=== PATIENT | male | born 1945 | race Caucasian/White ===

== ENCOUNTER 2016-11-16 09:49 | Emergency (ER) | payer BC, MEDICARE ==
[2016-11-16 10:17] LABS: #Basophils 0.1 thou/uL (0.0-0.2); #Eosinphils 0.1 thou/uL (0.0-0.7); #Lymphocytes 1.6 thou/uL (1.20-3.40); #Monocytes 0.8 thou/uL (0.11-0.59); #Neutrophils 6.5 thou/uL (1.40-6.50); %Basophils 0.6 % (0.0-1.0); %Eosinophils 0.7 % (0.0-10.0); %Lymphocytes 17.2 % (21.0-51.0); %Monocytes 9.2 % (0.0-10.0); Hematocrit 49.5 % (42.0-52.0); Mean Platelet Volume 7.5 fL (7.4-10.4); Red Blood Cell (RBC) Count 5.23 mill/uL (4.70-6.10)
[2016-11-16 10:43] LABS: Troponin I Less than 0.010 ng/mL (< 0.028)
[2016-11-16 10:45] LABS: ALT (SGPT) 14 U/L (8-55); AST (SGOT) 15 U/L (5-34); Alkaline Phosphatase 41 U/L (40-150); Anion Gap 15 mmol/L (10-20); BUN (Urea Nitrogen) 22 mg/dL (8.4-25.7); Bilirubin, Total 0.7 mg/dL (0.2-1.2); Calc. Creatinine Clearance 0 mL/min (70-130); Calcium 9.8 mg/dL (7.8-10.44); Carbon Dioxide 20 mmol/L (23-31); Chloride 106 mmol/L (98-107); Estimated GFR-MDRD 53; Globulin 3.8 g/dL (2.4-3.5)
[2016-11-16 10:51] LABS: Uric Acid 7.7 mg/dL (3.5-7.2)
[2016-11-16 10:52] LABS: Lactic Acid - Sepsis 1.3 mmol/L (0.5-2.2)
[2016-11-16] MEDS ORDERED: Colchicine 0.6 MG TAB PO SCH (12:45)
[2016-11-16] MEDS ORDERED: Indomethacin 25 mg Capsule PO SCH (12:45)
== END 2016-11-16 13:13 | disposition home or self-care (01) ==
LOC: ERS 09:49
DX: M10.9 Gout, unspecified (principal)
CPT/HCPCS: 36415; 80053; 82553; 83605; 84484; 84550; 85025; 85652; 86140; 93005

== ENCOUNTER 2018-07-04 10:40 | Observation (INO) | payer BC, MEDICARE ==
[2018-07-04 11:21] LABS: #Basophils 0.1 thou/uL (0.0-0.2); #Eosinphils 0.3 thou/uL (0.0-0.7); #Lymphocytes 2.2 thou/uL (1.20-3.40); #Monocytes 0.6 thou/uL (0.11-0.59); #Neutrophils 3.6 thou/uL (1.40-6.50); %Basophils 0.8 % (0.0-1.0); %Eosinophils 4.4 % (0.0-10.0); %Lymphocytes 32.2 % (21.0-51.0); %Monocytes 8.9 % (0.0-10.0); %Neutrophils 53.7 % (42.0-75.0); Hemoglobin 15.4 g/dL (14.0-18.0); Mean Corpuscular HGB CONC 34.6 g/dL (32.0-36.0); Mean Corpuscular Hemoglobin 31.3 pg (27.0-31.0); Mean Corpuscular Volume 90.4 fL (78.0-98.0); Mean Platelet Volume 7.8 fL (7.4-10.4); Platelet Count 219 thou/uL (130-400); RBC Distribution Width 12.6 % (11.5-14.5); Red Blood Cell (RBC) Count 4.92 mill/uL (4.70-6.10); White Blood Cell (WBC) Count 6.8 thou/uL (4.8-10.8)
[2018-07-04 11:28] LABS: ALT (SGPT) 19 U/L (8-55); AST (SGOT) 18 U/L (5-34); Albumin 4.2 g/dL (3.4-4.8); Alkaline Phosphatase 58 U/L (40-150); Anion Gap 11 mmol/L (10-20); BUN (Urea Nitrogen) 22 mg/dL (8.4-25.7); Bilirubin, Total 0.4 mg/dL (0.2-1.2); Calc. Creatinine Clearance 0 mL/min (70-130); Calcium 9.2 mg/dL (7.8-10.44); Carbon Dioxide 22 mmol/L (23-31); Chloride 111 mmol/L (98-107); Estimated GFR-MDRD 55; Globulin 2.7 g/dL (2.4-3.5); Glucose 99 mg/dL (83-110); Potassium 4.1 mmol/L (3.5-5.1); Protein, Total 6.9 g/dL (5.8-8.1); Sodium 140 mmol/L (136-145)
--- NOTE | 2018-07-04 11:47 | RAD ---
SINGLE VIEW OF THE CHEST: COMPARISON: None. HISTORY: Dizziness and chest pain FINDINGS: Single view of the chest shows a normal sized cardiomediastinal silhouette. There is no evidence of c onsolidation, mass, or pleural effusion. The bones are unremarkable. IMPRESSION: No evidence of acute cardiopulmonary disease. POS: [facility]
[2018-07-04] MEDS ORDERED: Ondansetron PF 4 MG/2 ML Vial IVP PRN (14:25)
[2018-07-04] MEDS ORDERED: Acetaminophen 500 MG TAB PO PRN (14:25)
[2018-07-04] MEDS ORDERED: hydrALAZINE 20 MG/ML VIAL SLOW IVP PRN (14:25)
[2018-07-04] MEDS ORDERED: Ondansetron ODT 4 MG TAB PO PRN (14:25)
[2018-07-04 14:53] LABS: Troponin I Less than 0.010 ng/mL (< 0.028)
[2018-07-04 15:26] VITALS: BMI 31.8
[2018-07-04 17:25] LABS: Troponin I 0.014 ng/mL (< 0.028)
[2018-07-04] MEDS: Sodium Chloride 0.9% 1,000 ML IV SCH (17:35)
--- NOTE | 2018-07-04 20:04 | HP ---
PRIMARY CARE PROVIDER: Dr. Everett Reynoso. CHIEF COMPLAINT: Chest pain. HISTORY OF PRESENT ILLNESS: This is a 73-year-old male, who presents to [facility] complaining of several week history of left-sided chest pressure, tightness, and pain. The patient has noted intermittent bouts of chest pressure and pain related to strenuous activity including mowing his lawn. The patient states he remains active doing maintenance surrounded his house as well as lawn care with persistent symptoms of left upper chest pain and pressure. The patient also has noted varying symptoms of dizziness, fatigue, and shortness of breath. The patient denies any known personal history of coronary artery disease and states he has undergone stress testing in the past within the last 2 years, which was negative. The patient denies any early coronary artery disease in family members. The patient denies taking chronic aspirin therapy, but had been treated previously in the past with Prilosec. The patient also admits history of gouty arthropathy intermittently taking colchicine for relief. The patient states he remains very active as stated previously without lower extremity swelling, fever, chills, cough, congestion, or exposure history. The patient denies any recent long periods of immobilization or recent surgical intervention. The patient states in the last 24 to 48 hours he took aspirin after experiencing chest tightness, which concerned him and discussing his symptoms with his family members who are in the medical field. The patient does admit to remote history of tobacco use 40+ years prior to this evaluation, none currently. In the emergency room, the patient underwent evaluation including metabolic screening with initial negative findings and troponin I. EKG was unremarkable and chest imaging negative. PAST MEDICAL HISTORY: 1. Gouty arthropathy. 2. Left AV malformation of the kidney, status post left nephrectomy. PAST SURGICAL HISTORY: 1. Status post hernia repair. 2. Status post left nephrectomy with lymph node resection and lower rib resection. CURRENT MEDICATIONS: 1. Colchicine. 2. Prilosec. ALLERGIES: TETRACYCLINE AND PENICILLIN. FAMILY HISTORY: One brother of complications of suspected coronary artery disease. No history of early coronary artery disease. SOCIAL HISTORY: The patient is , accompanied by his in the emergency room. No current tobacco or illicit drug use. Drinks wine occasionally. Employed at [employer] and [employer]. Functional of all activities of daily living. REVIEW OF SYSTEMS: CONSTITUTIONAL: Negative for weight loss or gain, ability to conduct usual activities. SKIN: Negative for rash, itching. EYES: Negative for double vision, pain. ENT/MOUTH: Negative for nose bleeding, neck stiffness, pain, tenderness. CARDIOVASCULAR: Negative for palpitations, dyspnea on exertion, orthopnea. RESPIRATORY: Negative for shortness of breath, wheezing, cough, hemoptysis, fever or night sweats. GASTROINTESTINAL: Negative for poor appetite, abdominal pain, heartburn, nausea, vomiting, constipation, or diarrhea. GENITOURINARY: Negative for urgency, frequency, dysuria, nocturia. MUSCULOSKELETAL: Negative for pain, swelling. NEUROLOGIC/PSYCHIATRIC: Negative for anxiety, depression. ALLERGY/IMMUNOLOGIC: Negative for skin rash, bleeding tendency. Otherwise negative except as stated per HPI. PHYSICAL EXAMINATION: VITAL SIGNS: On admission, blood pressure 150/92, pulse 69, respiratory rate 20, temperature 98.4 degrees Fahrenheit, and O2 saturation 98% on room air. GENERAL APPEARANCE: This is a 73-year-old male, alert and oriented x3, pleasant, conversant, in no acute distress. HEENT: Pupils are equal, round, reactive to light and accommodation. Extraocular muscles are intact. No scleral icterus. No conjunctival injection. Nares are patent. OP is clear. Teeth in good repair. NECK: Supple. No cervical adenopathy. No thyromegaly. No carotid bruits. No JVD appreciated. Cervical spine with full active and passive range of motion. No meningeal signs noted. CHEST: Lungs are clear to auscultation bilaterally. CARDIOVASCULAR: S1 and S2 without noted murmur, rub, or gallop. ABDOMEN: Rounded, soft, nontender, and nondistended. Bowel sounds are positive in all 4 quadrants. There is no hepatosplenomegaly. No abdominal bruits. No rebound or guarding appreciated. EXTREMITIES: Warm and dry with fair turgor. No clubbing, cyanosis, or asymmetric edema appreciated. Pulses palpable distally at the dorsalis pedis, posterior tibial, and popliteal arteries bilaterally. Capillary refill less than 2 seconds. MUSCULOSKELETAL: Positive tenderness to palpation in the left pectoral region and associated level in the posterior upper thoracic spine in mid scapular region. NEUROLOGIC: Cranial nerves 2 through 12 are grossly intact. No focal or lateralizing signs appreciated. PERTINENT LABORATORY DATA AND X-RAY FINDINGS: Complete metabolic profile within normal limits. Troponin I negative x1. CBC within normal limits. Portable chest x-ray dated 07/04/2018, showed no acute cardiopulmonary process. EKG dated 07/04/2018, by my interpretation shows sinus mechanism with heart rates in the 70s. Normal axis. No acute ST-T wave changes appreciated. ASSESSMENT AND PLAN: 1. Chest pain. The patient will be observed on the telemetry unit. We will proceed with exercise Cardiolite stress testing. N.p.o. status currently. Check fasting lipid profile in the a.m. Continue aspirin 325 mg daily. 2. Elevated blood pressure. No prior history of documented or treated hypertension. We will continue serial blood pressure monitoring and treat accordingly. Hydralazine p.r.n. systolic blood pressure greater than or equal to 170. 3. Gout. Stable currently. No clinical evidence of exacerbation. Confirm home regimen of colchicine. 4. Prophylaxis. SCDs while in bed. Pepcid 20 mg p.o. b.i.d. CODE STATUS: Full. Surrogate medical decision maker is the patient's spouse. Job ID: [id number]
[2018-07-04] MEDS: Famotidine 20 MG TAB PO SCH (20:48)
[2018-07-05 05:03] LABS: Anion Gap 12 mmol/L (10-20); BUN (Urea Nitrogen) 18 mg/dL (8.4-25.7); Calc. Creatinine Clearance 83 mL/min (70-130); Calcium 9.2 mg/dL (7.8-10.44); Carbon Dioxide 21 mmol/L (23-31); Cardiac Risk 5.4 (Less than 4.5); Chloride 111 mmol/L (98-107); Cholesterol 188 mg/dl (< 200 Desired); Estimated GFR-MDRD 63; Glucose 99 mg/dL (83-110); HDL Cholesterol 35 mg/dL (>60 Neg Risk); LDL Cholesterol, Calculated 106 mg/dL; Potassium 4.3 mmol/L (3.5-5.1); Sodium 140 mmol/L (136-145); Triglycerides 233 mg/dL (Less than 150)
[2018-07-05] MEDS: Sodium Chloride 0.9% 1,000 ML IV SCH (06:23)
[2018-07-05] MEDS ORDERED: Aspirin 325 mg Enteric Coated Tablet PO SCH (09:00)
--- NOTE | 2018-07-05 10:59 | NM ---
EXAM: CARDIAC SPECT HISTORY: Chest pain TECHNIQUE: A myocardial perfusion scan was performed using the single isotope 2 day protocol with giovanni hnetium 99m sestamibi. [27 mCi] was injected intravenously for the rest exam followed by 28 mCifor the stress study. Exercise stress was monitored and interpreted by Dr. Sheehan. FINDINGS: Homogeneous tracer distribution is seen in the myocardial segments on stress and rest image s without fixed or reversible defects. Gated SPECT LVEF: 70% Wall motion exam: Normal IMPRESSION: Normal myocardial perfusion scan
[2018-07-05] MEDS: Famotidine 20 MG TAB PO SCH (11:16)
[2018-07-05 11:43] VITALS: BP 150/78; TEMP 97.4
--- NOTE | 2018-07-06 06:44 | DIS ---
DATE OF ADMISSION: 07/04/2018 DATE OF DISCHARGE: 07/05/2018 DISCHARGE DIAGNOSES: 1. Chest pain, noncardiac, likely musculoskeletal. 2. Elevated blood pressure. 3. Hyperlipidemia. 4. Chronic kidney disease stage 2. CONSULTATIONS: None. PERTINENT LAB AND X-RAY FINDINGS: Creatinine ranged between 1.15 to 1.28 estimated GFR ranged between 55 to 63. Troponin I negative x3. Total cholesterol 188, triglycerides 233, HDL 35, LDL 106. Portable chest x-ray dated 07/04/2018 showed no acute cardiopulmonary process. Exercise Cardiolite stress test dated 07/04/2018 showed no evidence for reversible or fixed ischemia with calculated ejection fraction of 70%. HOSPITAL COURSE: The patient was observed on the telemetry unit after initially presenting with left-sided chest pain. The patient underwent cardiac biomarkers, which were negative x3 proceeding to exercise Cardiolite stress testing showing no evidence of reversible or fixed ischemia with a calculated ejection fraction of 70%. Telemetry monitoring showed sinus mechanism without evidence of acute arrhythmia or dysrhythmia. The patient was noted with elevated blood pressure readings throughout the hospital course with recommendations for outpatient monitoring and consideration of potential low-dose antihypertensive therapy. The patient also noted with mild hyperlipidemia with recommendations for dietary measures and exercise. Overall, the patient remained clinically stable throughout the hospital course. I have examined the patient at the time of discharge and discussed followup instructions. The patient verbalized understanding and agreement, ready for discharge on 07/05/2018. DISCHARGE MEDICATIONS: 1. Unisom mg p.o. at bedtime p.r.n. 2. Aleve 220 mg p.o. at bedtime p.r.n. pain. FOLLOWUP: The patient may follow up with his primary care provider, Dr. Everett Reynoso within 7 days of discharge. CONDITION ON DISCHARGE: Stable. ACTIVITY: Ad-sal. DIET: Heart healthy. CODE STATUS: Full. DISPOSITION: Home on 07/05/2018. Job ID: [id number]
== END 2018-07-05 13:31 | disposition home or self-care (01) ==
LOC: ERS 10:40 → 2SW 12:29
PROVIDERS: ADMIT Family Medicine; ATTEND Family Medicine
DX: R07.89 Other chest pain (principal); N18.2 Chronic kidney disease, stage 2 (mild); M10.9 Gout, unspecified; E78.5 Hyperlipidemia, unspecified; R03.0 Elevated blood-pressure reading, without diagnosis of hypertension; Z90.5 Acquired absence of kidney; Z88.0 Allergy status to penicillin; Z88.1 Allergy status to other antibiotic agents
CPT/HCPCS: 36415; 71045; 78452; 80048; 80053; 80061; 84484; 85025; 93005; 93017; 94760; 96360; 96361; A9500; G0378

== ENCOUNTER 2019-02-18 11:49 | Outpatient (CLI) | payer MEDICARE, BC ==
[2019-02-18 13:47] LABS: #Basophils 0.1 thou/uL (0.0-0.2); #Eosinphils 0.1 thou/uL (0.0-0.7); #Monocytes 0.4 thou/uL (0.11-0.59); #Neutrophils 4.2 thou/uL (1.40-6.50); %Basophils 1.3 % (0.0-1.0); %Eosinophils 1.8 % (0.0-10.0); %Lymphocytes 28.9 % (21.0-51.0); %Monocytes 5.5 % (0.0-10.0); %Neutrophils 62.4 % (42.0-75.0); Hemoglobin 15.9 g/dL (14.0-18.0); Mean Corpuscular HGB CONC 33.6 g/dL (32.0-36.0); Mean Corpuscular Hemoglobin 30.4 pg (27.0-31.0); Mean Corpuscular Volume 90.6 fL (78.0-98.0); Mean Platelet Volume 7.8 fL (7.4-10.4); Platelet Count 243 thou/uL (130-400); RBC Distribution Width 12.5 % (11.5-14.5); Red Blood Cell (RBC) Count 5.24 mill/uL (4.70-6.10); White Blood Cell (WBC) Count 6.7 thou/uL (4.8-10.8)
[2019-02-18 14:13] LABS: ALT (SGPT) 25 U/L (8-55); AST (SGOT) 21 U/L (5-34); Albumin 4.4 g/dL (3.4-4.8); Alkaline Phosphatase 55 U/L (40-110); Anion Gap 13 mmol/L (10-20); BUN (Urea Nitrogen) 22 mg/dL (8.4-25.7); Bilirubin, Total 0.4 mg/dL (0.2-1.2); Calc. Creatinine Clearance 0 mL/min (70-130); Calcium 9.4 mg/dL (7.8-10.44); Carbon Dioxide 29 mmol/L (23-31); Chloride 106 mmol/L (98-107); Estimated GFR-MDRD 42; Glucose 99 mg/dL (83-110); Potassium 4.4 mmol/L (3.5-5.1); Protein, Total 7.4 g/dL (5.8-8.1); Sodium 144 mmol/L (136-145)
--- NOTE | 2019-02-21 15:17 | EKG ---
Test Reason : Blood Pressure : / mmHG Vent. Rate : 103 BPM Atrial Rate : 103 BPM P-R Int : 156 ms QRS Dur : 086 ms QT Int : 344 ms P-R-T Axes : 015 049 033 degrees QTc Int : 450 ms Sinus tachycardia Otherwise normal ECG When compared with ECG of 04-JUL-2018 10:48, Previous ECG has undetermined rhythm, needs review QT has lengthened Confirmed by DR. Alexi SANTANA ([id number]) on 02/21/2019 3:16:37 PM Referred By: BABAR Confirmed By:DR. Alexi SANTANA
== END 2019-02-18 11:50 | disposition home or self-care (01) ==
LOC: LABBT 11:49
PROVIDERS: ATTEND Surgery
DX: Z01.818 Encounter for other preprocedural examination (principal); K40.91 Unilateral inguinal hernia, without obstruction or gangrene, recurrent
CPT/HCPCS: 80053; 85025; 93005; 93010

== ENCOUNTER 2019-02-21 05:32 | Day surgery (SDC) | payer MEDICARE, BC ==
[2019-02-18 13:01] VITALS: BMI 32.5
[2019-02-21] MEDS ORDERED: Levofloxacin 500 mg/D5W 100 ml Premix Bag ONE (06:11)
[2019-02-21] MEDS ORDERED: Midazolam HCl 2 mg/2 ml Vial ONE (06:22)
[2019-02-21] MEDS ORDERED: SUGAMMADEX SODIUM 200 MG/2 ML VIAL ONE (06:22)
[2019-02-21] MEDS ORDERED: Fentanyl 100 MCG/2 ML VIAL ONE ×2 (06:22→09:36)
[2019-02-21] MEDS ORDERED: HYDROmorphone 0.5 MG/0.5 ML SYRINGE ONE (06:23)
[2019-02-21] MEDS ORDERED: Bupivacaine 0.25% HCL 30 ML VIAL ONE (06:51)
[2019-02-21] MEDS ORDERED: Lidocaine 1% w/Epinephrine 1:100K 20 ML VIAL ONE (06:51)
--- NOTE | 2019-02-21 11:23 | OP ---
DATE OF PROCEDURE: 02/21/2019 PREOPERATIVE DIAGNOSIS: Recurrent left inguinal hernia. PROCEDURE PERFORMED: Laparoscopic robotic-assisted recurrent left inguinal hernia repair with mesh. INDICATIONS: This is a 73-year-old male who had a left inguinal hernia repair many years ago, developed recurrent bulge. FINDINGS: Recurrent direct inguinal hernia. DESCRIPTION OF PROCEDURE: After informed consent was obtained, the patient was taken to the operating room, given general endotracheal anesthesia, placed in supine position. Abdomen was prepped and draped in usual fashion. Local anesthesia was infiltrated subcutaneously and deep. A supraumbilical incision was performed. Subcu was divided sharply. The fascia was grasped and incised. Digital palpation revealed no local adhesions. A 12 mm trocar was inserted. Pneumoperitoneum was created to a pressure of 15 mmHg. A 30-degree laparoscope was inserted under direct vision. Two 8 mm ports were placed just lateral to the rectus bilateral. The patient was then placed in steep reverse Trendelenburg position. The robot was docked. I went to the console. The peritoneum was opened from the median umbilical ligament. First of all, there was a laparoscopic lysis of adhesions that was performed to expose the peritoneal surface. Then, the peritoneum was opened from medial umbilical ligament laterally and a subperitoneal plane developed using blunt and sharp dissection. The pubic tubercle was defined. Then, the cord structures were defined. A medium left contour mesh was inserted and placed within his pocket. A 2-0 silk suture used to secure the medial edge of the mesh to the pubic tubercle, then superior just lateral to the epigastric vessels. The mesh was sutured superiorly. Then, using a running PDS 3-0 V-Loc, the peritoneum was closed lateral to medial. Hemostasis was assured. All the needles were retrieved. The fascia was closed with interrupted 2-0 Vicryl suture. The skin was closed with interrupted 4-0 Rapide. Dermabond was applied. The patient tolerated the procedure well, transferred to Recovery in good condition. Sponge and needle count verified correct x2. Job ID: [id number]
[2019-02-21] MEDS ORDERED: PHENYLEPHRINE-NS 100 MCG/ML 10 ML SYRINGE ONE (14:52)
[2019-02-21] MEDS ORDERED: PROPOFOL 200 MG/20 ML VIAL ONE (14:52)
[2019-02-21] MEDS ORDERED: Dexamethasone 20 MG/5 ML VIAL ONE (14:52)
[2019-02-21] MEDS ORDERED: Ondansetron PF 4 MG/2 ML Vial ONE (14:52)
[2019-02-21] MEDS ORDERED: Rocuronium Bromide 10 MG/ML (10ML VIAL) ONE (14:52)
--- NOTE | 2019-02-21 21:52 | CON ---
DATE OF CONSULTATION: 02/21/2019 CONSULTING PHYSICIAN: Dr. Nunez. CONSULTED: Dr. Prater. REASON FOR CONSULTATION: Gross hematuria. HISTORY OF PRESENT ILLNESS: Mr. Garay is a 73-year-old white male, who just recently underwent a robot inguinal hernia repair today by Dr. Nunez. During the surgery, Dr. Nunez did check the bladder during the procedure to ensure that there was no bladder injury and stated that there was none encountered. The catheter was inserted at the beginning of the surgery without any difficulty or problems and the urine remained clear throughout the surgical case. Postoperatively in recovery, the patient began experiencing bright red blood in the urine. The catheter was removed and the patient continued to void, but I was consulted for further assistance given the patient had fairly severe hematuria. On my discussion with the patient, he states that he has the standard expected soreness from his inguinal surgeries, but states that he has no significant dysuria or bladder pain. He is still able to urinate and has only passed very small clots. He states he has had hematuria in the past related to prostate biopsies, which were done by Dr. Chen approximately 2 to 3 years ago, which came back negative as well as when he underwent some kind of transurethral resection of the ejaculatory ducts or similar associated surgeries many years ago for fertility done in [place]. The patient has also undergone a nephrectomy during that time due to kidney cancer. He is currently followed by Dr. Chen, here. He generally states he does not have any significant urinary difficulties and has no known history of urinary tract infections. He may have had a kidney stone in the remote past, but does not remember if this was a major issue, but this is definitely not a recurring issue for him. ALLERGIES: 1. TETRACYCLINE. 2. PENICILLIN. HOME MEDICATIONS: 1. Colchicine. 2. Prilosec. PAST MEDICAL HISTORY: 1. Gouty arthritis. 2. AV malformation of the kidney resulting in left nephrectomy. 3. Inguinal hernias. PAST SURGICAL HISTORY: 1. Prior hernia repair. 2. Recent robotic hernia repair today. 3. Left nephrectomy with lymph node dissection. FAMILY HISTORY: Noncontributory. SOCIAL HISTORY: The patient is , lives with his . He denies tobacco, illicit drug use, or alcohol abuse. He does drink alcohol only on rare occasion. REVIEW OF SYSTEMS: A 12-point review of systems reviewed and negative other than what was commented on the HPI. PHYSICAL EXAMINATION: VITAL SIGNS: Stable. The patient is afebrile. GENERAL: No apparent distress, communicative and alert, well-nourished, well-developed, appears stated age. HEENT: Normocephalic, atraumatic. Pupils are symmetric and round. Trachea midline. Moist mucous membranes. CARDIOVASCULAR: Regular rate and rhythm. Normal S1, S2. Symmetric pulses. CHEST: No increased work of breathing. Symmetric expansion. LUNGS: Clear anteriorly. ABDOMEN: Soft, nontender, and nondistended. Positive bowel sounds. Well-healed flank incision on the left without hernia. Recent inguinal scars from today's surgery which appear clean, dry, and intact. : The patient does not have a catheter. There is a tiny amount of blood at the meatus. Scrotum is otherwise nonfocal. No edema. No masses. No tenderness. EXTREMITIES: No clubbing, cyanosis, or edema. MUSCULOSKELETAL: No joint deformities or joint erythema noted. Full range of motion. NEUROLOGIC: Cranial nerves 2 through 12 are grossly intact. No focal or sensory motor deficits identified. SKIN: Warm and dry. Good turgor. No rashes or lesions. PSYCHIATRIC: Alert and oriented x3. Appropriate mood and affect. ASSESSMENT AND PLAN: A 73-year-old white male with gross hematuria, which is now clearing. I recommended that he stay off his aspirin for at least 7 days until his hematuria is completely cleared. He does appear to be having significant resolution of his hematuria already. I suspect that he probably had some type of irritation of a vein on the prostate or some other mucosal based vessel, which has ruptured and resulted in bleeding. Nonetheless, it probably would be a good idea for the patient to undergo an outpatient cystoscopy as he had a relatively atraumatic catheter placement, which resulted in significant hematuria to ensure that he has no mucosal based abnormalities within the bladder. He may want to undergo full hematuria workup if necessary, but this can be done by his primary urologist, Dr. Amandeep Chen, who can evaluate him as an outpatient. From my standpoint, I see no reason that he needs to stay in the hospital. He can be discharged home as he is still urinating without any clots. He should continue to hydrate aggressively, perform light activity as instructed by Dr. Nunez for his hernia repairs, and avoid constipation. I have given him my card in case he has any issues and he can see me on a p.r.n. basis. Job ID: [id number]
== END 2019-02-21 15:15 | disposition home or self-care (01) ==
LOC: SDC 05:32
PROVIDERS: ATTEND Surgery
PROC: 0YU64JZ Supplement Left Inguinal Region with Synthetic Substitute, Percutaneous Endoscopic Approach (ICD-10-PCS; principal; 2019-02-21)
DX: K40.91 Unilateral inguinal hernia, without obstruction or gangrene, recurrent (principal); R31.0 Gross hematuria; M10.9 Gout, unspecified; Z85.528 Personal history of other malignant neoplasm of kidney; Z79.82 Long term (current) use of aspirin; Z88.0 Allergy status to penicillin; Z88.1 Allergy status to other antibiotic agents; Z90.5 Acquired absence of kidney
CPT/HCPCS: 49651; C1781; J1100; J1170; J1956; J2250; J2405; J2704; J3010; S0020

== ENCOUNTER 2021-02-04 12:17 | Emergency (ER) | payer MEDICARE, BC ==
[~2021-02-04 12:17] MED LIST: ISOVUE-370 76%-LOCM 1 ML ONE
[2021-02-04 13:19] LABS: #Basophils 0.1 thou/uL (0.0-0.2); #Eosinphils 0.4 thou/uL (0.0-0.7); #Lymphocytes 1.6 thou/uL (1.20-3.40); #Monocytes 0.4 thou/uL (0.11-0.59); #Neutrophils 3.2 thou/uL (1.40-6.50); %Basophils 1.3 % (0.0-1.0); %Eosinophils 6.8 % (0.0-10.0); %Monocytes 7.5 % (0.0-10.0); %Neutrophils 56.4 % (42.0-75.0); Hemoglobin 15.8 g/dL (14.0-18.0); Mean Corpuscular HGB CONC 34.1 g/dL (32.0-36.0); Mean Corpuscular Hemoglobin 31.6 pg (27.0-31.0); Mean Corpuscular Volume 92.5 fL (78.0-98.0); Mean Platelet Volume 7.4 fL (7.4-10.4); Platelet Count 212 thou/uL (130-400); RBC Distribution Width 12.5 % (11.5-14.5); Red Blood Cell (RBC) Count 5.01 mill/uL (4.70-6.10); White Blood Cell (WBC) Count 5.8 thou/uL (4.8-10.8)
[2021-02-04 13:40] LABS: ALT (SGPT) 17 U/L (8-55); AST (SGOT) 22 U/L (5-34); Albumin 4.2 g/dL (3.4-4.8); Alkaline Phosphatase 46 U/L (40-110); Anion Gap 15 mmol/L (10-20); BUN (Urea Nitrogen) 21 mg/dL (8.4-25.7); Bilirubin, Total 0.3 mg/dL (0.2-1.2); Calc. Creatinine Clearance 0 mL/min (70-130); Calcium 9.2 mg/dL (7.8-10.44); Carbon Dioxide 21 mmol/L (23-31); Chloride 105 mmol/L (98-107); Globulin 3.2 g/dL (2.4-3.5); Glucose 84 mg/dL (83-110); Lipase 62 U/L (8-78); Potassium 4.4 mmol/L (3.5-5.1); Protein, Total 7.4 g/dL (5.8-8.1); Sodium 137 mmol/L (136-145)
[2021-02-04] MEDS ORDERED: Morphine 4 MG/ML VIAL ONE (15:07)
[2021-02-04] MEDS ORDERED: Ondansetron PF 4 MG/2 ML Vial ONE (15:07)
[2021-02-04 15:19] LABS: Bacteria/HPF None Seen HPF (None Seen); Bilirubin Negative (Negative); Blood, Urine Negative (Negative); Clarity Clear (Clear); Glucose, Urine (Dipstick) Normal (Negative); Ketone, Urine 60 mg/dL (Negative); Leukocyte Negative Leu/uL (Negative); Nitrite Negative (Negative); Protein, Urine (Dipstick) 100 mg/dL (Neg-Trace); RBC/HPF 0-3 HPF (0-3); Specific Gravity, Urine 1.022 (1.002-1.036); Squamous Epithelial None Seen HPF (0-3); Urobilinogen Normal mg/dL (Less than 2); WBC/HPF 0-3 HPF (0-3); pH, Urine 5.5 (5.0-9.0)
== END 2021-02-04 16:36 | disposition home or self-care (01) ==
LOC: ERS 12:17
DX: K29.70 Gastritis, unspecified, without bleeding (principal); M10.9 Gout, unspecified; M19.90 Unspecified osteoarthritis, unspecified site
CPT/HCPCS: 36415; 74177; 80053; 81003; 81015; 83690; 85025; 96374; 96375; J2270; J2405; Q9966

== ENCOUNTER 2021-08-02 08:21 | Outpatient (CLI) | payer MEDICARE, BC | END 2021-08-02 08:22 | disposition home or self-care (01) | LOC: TBSIIMAG 08:21 | PROVIDERS: ATTEND Urology | DX: R97.20 Elevated prostate specific antigen [PSA] (principal) | CPT/HCPCS: 72197; 82565 ==

== ENCOUNTER 2021-09-17 16:01 | Emergency (ER) | payer MEDICARE, BC ==
[2021-09-17] MEDS ORDERED: Boostrix 0.5 ML (Tdap) VIAL ONE (16:36)
== END 2021-09-17 17:23 | disposition home or self-care (01) ==
LOC: ERS 16:01
DX: S61.314A Laceration without foreign body of right ring finger with damage to nail, initial encounter (principal); W26.0XXA Contact with knife, initial encounter
CPT/HCPCS: 11730; 90471; 90715

== ENCOUNTER 2022-02-08 11:04 | Emergency (ER) | payer MEDICARE, BC | END 2022-02-08 16:02 | disposition home or self-care (01) | LOC: ERS 11:04 | DX: J18.9 Pneumonia, unspecified organism (principal); R07.9 Chest pain, unspecified; Z20.822 Contact with and (suspected) exposure to COVID-19 | CPT/HCPCS: 71045; 84484; 87804 ×2; 93005; U0003; U0005; 36415 ==

== ENCOUNTER 2023-03-30 09:14 | Emergency (ER) | payer BC, MEDICARE ==
[2023-03-30 11:47] LABS: #Basophils 0.1 thou/uL (0.0-0.2); #Eosinphils 0.3 thou/uL (0.0-0.7); #Monocytes 0.6 thou/uL (0.11-0.59); #Neutrophils 3.7 thou/uL (1.40-6.50); %Basophils 0.8 % (0.0-1.0); %Eosinophils 4.9 % (0.0-10.0); %Lymphocytes 25.6 % (21.0-51.0); %Monocytes 8.9 % (0.0-10.0); %Neutrophils 59.6 % (42.0-75.0); Hematocrit 47.3 % (42.0-52.0); Hemoglobin 15.6 g/dL (14.0-18.0); Mean Corpuscular Hemoglobin 31.4 pg (27.0-31.0); Mean Corpuscular Volume 95.2 fl (78.0-98.0); Mean Platelet Volume 10.8 fL (7.4-10.4); Platelet Count 204 10x3/uL (130-400); RBC Distribution Width 13.3 % (11.5-14.5); Red Blood Cell (RBC) Count 4.97 mill/uL (4.70-6.10); White Blood Cell (WBC) Count 6.2 10x3/uL (4.8-10.8)
[2023-03-30 12:10] LABS: ALT (SGPT) 17 U/L (8-55); AST (SGOT) 20 U/L (5-34); Albumin 4.6 g/dL (3.4-4.8); Alkaline Phosphatase 60 U/L (40-110); Anion Gap 13 mmol/L (10-20); BUN (Urea Nitrogen) 39 mg/dL (8.4-25.7); Bilirubin, Total 0.4 mg/dL (0.2-1.2); Calc. Creatinine Clearance 0 mL/min (70-130); Calcium 9.6 mg/dL (7.8-10.44); Carbon Dioxide 22 mmol/L (23-31); Chloride 107 mmol/L (98-107); Estimated GFR 48; Globulin 3.1 g/dL (2.4-3.5); Glucose 94 mg/dL (83-110); Potassium 4.8 mmol/L (3.5-5.1); Protein, Total 7.7 g/dL (5.8-8.1); Sodium 137 mmol/L (136-145)
[2023-03-30 12:14] LABS: Troponin I Less than 0.010 ng/mL (< 0.028)
== END 2023-03-30 12:48 | disposition home or self-care (01) ==
LOC: ERS 09:14
DX: R51.9 Headache, unspecified (principal); G89.29 Other chronic pain; N18.9 Chronic kidney disease, unspecified; R42 Dizziness and giddiness; I10 Essential (primary) hypertension; Z87.891 Personal history of nicotine dependence; Z55.6 Problems related to health literacy
CPT/HCPCS: 36415; 70450; 80053; 84443; 84484; 85025